=== PATIENT | female | born 1990 | race Caucasian/White ===

== ENCOUNTER → 2021-07-23 | Day surgery (SDC) | payer OTHER ==
[~2021-07-23] VITALS: Ht 152.4 cm; Wt 59.0 kg
[~2021-07-23] MED LIST: ONDANSETRON ODT4 MG PO
[2021-07-23 06:32] LABS: HCG (URINE) SCREEN NEGATIVE (NEGATIVE)
[2021-07-23 06:37] LABS: HCT 38.2 % (37.0-47.0); HGB 13.4 g/dl (12.5-16.0); MCH 31.5 pg (25.0-31.0); MCHC 35.1 g/dL (32.0-36.0); MCV 89.7 fL (78.0-100.0); MPV 8.9 fL (6.0-9.5); RBC 4.26 M/uL (4.20-5.40); RDW 11.8 % (11.5-14.0); WBC 6.4 K/uL (4.0-10.5)
== END | disposition home or self-care (01) ==
LOC: FAS 06-25 10:00
PROVIDERS: Specialist
DX: N92.1 Excessive and frequent menstruation with irregular cycle (principal); F41.1 Generalized anxiety disorder; N64.4 Mastodynia; F17.200 Nicotine dependence, unspecified, uncomplicated; Z88.1 Allergy status to other antibiotic agents; Z88.8 Allergy status to other drugs, medicaments and biological substances
CPT/HCPCS: 36415; 84703; 86850; 86900; 86901; J0690; J1100; J1170; J1885; J2250; J2405; J2550; J2704; J3010; J7120

== ENCOUNTER 2021-07-24 19:11 | Emergency (ER) | payer OTHER ==
[2021-07-24 21:05] LABS: BASOPHIL 0.3 % (0-2); EOSINOPHIL 0.5 % (0-5); HCT 34.2 % (37.0-47.0); HGB 11.8 g/dl (12.5-16.0); LYMPHOCYTE 39.4 % (15-48); MCH 31.6 pg (25.0-31.0); MCHC 34.5 g/dL (32.0-36.0); MCV 91.7 fL (78.0-100.0); MONOCYTE 6.6 % (0-12); MPV 9.1 fL (6.0-9.5); NEUTROPHIL 52.9 % (41-80); NRBC 0; PLT 205 K/uL (150-400); RBC 3.73 M/uL (4.20-5.40); RDW 11.9 % (11.5-14.0)
[2021-07-24 21:26] LABS: ALKALINE PHOSHATASE 62 U/L (46-116); ALT 16 U/L (14-59); AST 16 U/L (15-37); BILIRUBIN - TOTAL 0.3 mg/dL (0.2-1.0); BUN 8 mg/dL (7-18); BUN/CREAT RATIO (CALC) 12.9 RATIO; CHLORIDE 102 mmol/L (98-107); CO2 (BICARBONATE) 28 mmol/L (21-32); CREATININE 0.62 mg/dL (0.51-0.95); GLOBULIN (CALCULATION) 3.6 g/dL; GLUCOSE 95 mg/dL (74-106); POTASSIUM 3.3 mmol/L (3.5-5.1); TOTAL PROTEIN 7.6 g/dL (6.4-8.2)
[2021-07-25] MEDS ORDERED: ONDANSETRON ODT4 MG PO (00:33)
== END 2021-07-25 00:53 | disposition home or self-care (01) ==
LOC: FER 19:11
PROVIDERS: Emergency Medicine
DX: G89.18 Other acute postprocedural pain (principal); R10.13 Epigastric pain; R10.11 Right upper quadrant pain; R07.89 Other chest pain; Z88.1 Allergy status to other antibiotic agents; Z88.8 Allergy status to other drugs, medicaments and biological substances
CPT/HCPCS: 36415; 71275; 80053; 84484; 85025; 93005; J1170; J2405; J7030; Q9967